=== PATIENT | female | born 1985 | race Caucasian/White ===

== ENCOUNTER 2017-04-22 06:09 | Day surgery (SDC) | payer BC ==
[~2017-04-22] VITALS: Ht 157.5 cm; Wt 56.5 kg
[~2017-04-22 06:09] MED LIST: CITA10TA8 PO; CITA40TA12 PO; TOPI100T24 PO; TOPI25CA5 PO; TRAZ50TA18 PO
[2017-04-22] MEDS ORDERED: LACTATED RINGERS 1,000 ML IV SCH (06:37)
[2017-04-22] MEDS ORDERED: LIDOCAINE/PF 1%, 30ML ONE (06:52)
[2017-04-22] MEDS ORDERED: EPINEPHRINE 1 MG/ML, 1ML ONE (06:52)
[2017-04-22] MEDS ORDERED: FLUORESCEIN SODIUM 500 MG/5 ML ONE (06:52)
[2017-04-22 06:53] LABS: HCG UR OBC PASS
[2017-04-22 06:59] VITALS: BP 114/76
[2017-04-22] MEDS ORDERED: OXYTOCIN 10 UNITS/ML, 1ML ONE (07:00)
[2017-04-22] MEDS ORDERED: MISOPROSTOL 200 MCG TABLET ONE (07:00)
[2017-04-22] MEDS ORDERED: SILVER NITRATE STICK TP ONE (07:01)
[2017-04-22] MEDS ORDERED: MIDAZOLAM 1 MG/ML, 2ML ONE (07:27)
[2017-04-22] MEDS ORDERED: FENTANYL PF 250 MCG/5ML ONE (07:28)
[2017-04-22] MEDS ORDERED: METOCLOPRAMIDE 5 MG/ML, 2ML IV PRN (08:30)
[2017-04-22] MEDS ORDERED: ACETAMINOPHEN 325 MG TABLET PO PRN (08:30)
[2017-04-22] MEDS ORDERED: EPHEDRINE 50 MG/ML, 1ML IVPush PRN (08:30)
[2017-04-22] MEDS ORDERED: MEPERIDINE/PF 25MG/0.5ML IVPush PRN (08:30)
[2017-04-22] MEDS ORDERED: ONDANSETRON 2MG/ML, 2ML IVPush PRN ×2 (08:30→11:00)
[2017-04-22] MEDS ORDERED: HYDROmorphone 1 MG/ML, 1ML IV PRN ×2 (08:30→11:30)
[2017-04-22] MEDS ORDERED: FENTANYL PF 100 MCG/2ML ONE (09:21)
[2017-04-22] MEDS ORDERED: ACETAMINOPHEN 650 MG/20.3 ML UDC ONE (09:21)
[2017-04-22] MEDS ORDERED: ACETAMINOPHEN 325 MG/10.15 ML UDC ONE (09:21)
[2017-04-22] MEDS ORDERED: OXYcodone 5 MG/5 ML ORAL.SOL UDC ONE (09:26)
[2017-04-22] MEDS ORDERED: OXYcodone 5 MG/5 ML ORAL.SOL UDC PO PRN (09:30)
[2017-04-22] MEDS: FENTANYL PF 100 MCG/2ML IV PRN ×2 (09:31→09:56)
[2017-04-22] MEDS ORDERED: MEPERIDINE/PF 25MG/0.5ML ONE (09:42)
[2017-04-22] MEDS ORDERED: KETOROLAC 30 MG/1 ML ONE ×2 (10:42→11:00)
[2017-04-22] MEDS ORDERED: KETOROLAC 30 MG/1 ML IVPush PRN (11:00)
[2017-04-22] MEDS ORDERED: SUCCINYLCHOLINE 20 MG/ML, 10ML ONE (11:00)
[2017-04-22] MEDS ORDERED: DEXAMETHASONE 4 MG/ML, 1ML ONE (11:00)
[2017-04-22] MEDS ORDERED: EPHEDRINE 50 MG/ML, 1ML ONE (11:00)
[2017-04-22] MEDS ORDERED: ONDANSETRON 2MG/ML, 2ML ONE (11:00)
[2017-04-22] MEDS ORDERED: DIPHENHYDRAMINE 50 MG/ML, 1ML IVPush PRN (11:00)
[2017-04-22] MEDS ORDERED: OXYcodone/APAP 7.5/325MG TABLET PO PRN (11:00)
[2017-04-22] MEDS ORDERED: CEFAZOLIN 1,000 MG ONE (11:00)
[2017-04-22] MEDS ORDERED: PROPOFOL 10 MG/ML, 20ML ONE (11:00)
[2017-04-22] MEDS ORDERED: HYDROmorphone 2 MG/ML, 1ML ONE (11:09)
== END 2017-04-22 16:50 ==
LOC: OUT 06:09
PROVIDERS: ATTEND Obstetrics & Gynecology Gynecology
DX: N92.1 Excessive and frequent menstruation with irregular cycle (principal); N83.8 Other noninflammatory disorders of ovary, fallopian tube and broad ligament; F17.200 Nicotine dependence, unspecified, uncomplicated
CPT/HCPCS: 36415; 52000; 58552; 81025; 85014; 88307; J0171; J0330; J0690; J1100; J1170; J1885; J2175; J2250; J2405; J2704; J3010; J3490; J7120; J2590